=== PATIENT | female | born 1985 | race Caucasian/White ===

== ENCOUNTER 2024-06-13 14:55 | Emergency (ER) | payer MEDICARE, MEDICAID, SELFPAY ==
[2024-06-13 15:12] VITALS: BP 92/60
--- NOTE | 2024-06-13 15:57 | ED.GENMED ---
History of Present Illness
General
Chief Complaint: Head Injury
Source: patient
Exam Limitations: none
Time Seen by Provider: 06/13/24 15:25
Nursing documentation reviewed up to this point in time: agreed with
History of Present Illness
History of Present Illness:
Patient to ED s/p head injury. States she was leaning over a chair and fell. Hit left side of head on ground. No LOC. 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 Advised to come to ED for CT of head. Incident occurred just [employer]
Past History
Past History
ED Past Medical History: Other (Down syndrome, DVT, heart murmur)
ED Past Surgical History: Cardiac
Social History
Tobacco: Non-smoker
Alcohol: None
Drug: None
Personal: Single
Living: with family
Review of Systems
Review of Systems
Allergies reviewed?: Yes
All Other Systems: ROS reviewed and negative except as documented in HPI and ROS
Constitutional: Reports no symptoms
EENT: Reports no symptoms
Respiratory: Reports no symptoms
Cardiac: Reports no symptoms
ABD/GI: Reports no symptoms
Musculoskeletal: Reports no symptoms
Skin: Reports no symptoms
Neurological: Reports no symptoms
Psychiatric: Reports no symptoms
Phy Exam
General Physical Exam
General Presentation: well appearing and no apparent distress
General age: appears stated age
General Skin: warm and dry
General Habitus: normal
General Mental: alert
[place] Coma Scale
Eye Opening: Spontaneous
Verbal Response: Oriented
Motor Response: Obeys Commands
GCS Total Score: 15
Musculoskeletal Exam
Musculoskeletal Exam: full ROM and neuro vasc intact
Skin Exam
Skin Exam: normal color, warm/dry and no rash
Psychiatric Exam
Psychiatric Exam: normal mood/affect
Course
Orders/Labs/Results
Orders:
Orders
06/13/24 15:12
CT Head W/o Iv Contrast Urgent
Comment:
Reason For Exam: head injury on xarelto
06/13/24 15:48
Test Result ONCE
Vital Signs
Initial and Last Documented VS:
Initial Vital Signs
Temp Pulse Resp BP Pulse Ox
99.0 F 69 16 92/60 97
06/13/24 15:12 06/13/24 15:12 06/13/24 15:12 06/13/24 15:12 06/13/24 15:12
Last Documented Vital Signs
Temp Pulse Resp BP Pulse Ox
99.0 F 70 18 100/68 99
06/13/24 15:12 06/13/24 17:34 06/13/24 17:34 06/13/24 17:34 06/13/24 17:34
*Radiology
Radiology exam reviewed: radiology read reviewed
*Pulse Oximetry
Patient hypoxic: no
*Critical Care Note
Total Time (30-74mins, 75-104mins- exclusive of procedures): Not Applicable
ED Attending Note
-
Portions of this chart may have been created with voice recognition software.� Occasional wrong word or��sound alike� substitutions may have occurred due to the inherent limitations of voice recognition software.
Discharge Plan
Departure
Patient Disposition: Home (Routine Discharge)
Date of Disposition: 06/13/24
Time of Disposition: 17:16
Patient with high blood pressure during this ER visit?: No
Condition: Good
Covid-19: Not Applicable
Discharge Problem:
Head injury
Instructions: Head Injury in Adults (DC), Contusion (DC)
Prescriptions:
No Action
nitrofurantoin monohyd/m-cryst [Macrobid] 100 MG capsule
100 mg PO BID Qty: 10 0RF
Referrals:
Kian Thurston MD [Family Provider] - Follow up in 2-3 days
Interventions
Interventions:
*Risk Screen - Suicide Last Done: 06/13/24 15:54
*Neglect/Abuse Screening Last Done: 06/13/24 15:54
*Nursing Disposition Last Done: 06/13/24 17:36
ED- Neurological Assessment Last Done: 06/13/24 15:54
ED-Skin Assessment Last Done: 06/13/24 15:54
Discharge Date and Time
Discharge Date/Time: 06/13/24 17:37
Print Language: [id number]
[2024-06-13 17:34] VITALS: BP 100/68
== END 2024-06-13 17:37 | disposition home or self-care (01) ==
LOC: EMR 14:55
PROVIDERS: EMERGENCY PHYSICIAN Student in an Organized Health Care Education/Training Program; FAMILY PHYSICIAN Family Medicine
DX: S09.90XA Unspecified injury of head, initial encounter (principal); W22.03XA Walked into furniture, initial encounter; Q90.9 Down syndrome, unspecified; Z79.01 Long term (current) use of anticoagulants; Z86.718 Personal history of other venous thrombosis and embolism
CPT/HCPCS: 99284; 70450

== ENCOUNTER → 2024-09-19 10:03 | Outpatient (REF) | payer MEDICARE, MEDICAID, SELFPAY | LOC: RST 10:03 | PROVIDERS: ATTENDING PHYSICIAN Otolaryngology; FAMILY PHYSICIAN Family Medicine | DX: R13.12 Dysphagia, oropharyngeal phase (principal) | CPT/HCPCS: 74230; 92611 ==